=== PATIENT | male | born 1990 | race Caucasian/White ===

== ENCOUNTER 2020-11-10 22:38 | Emergency (ER) | payer MEDICAID, OTHER ==
[~2020-11-10] VITALS: Ht 177.8 cm; Wt 82.0 kg
[2020-11-11] MEDS ORDERED: HYDROCODONE/ACETAMINOPHEN 5/325MG TABLET PO ONE
[2020-11-11 00:16] LABS: HEMATOCRIT. 40.4 % (42.0-52.0); HEMOGLOBIN. 14.1 g/dL (14.0-18.0); MEAN CORPUSCULAR VOLUME 94.8 fL (80.0-94.0); MEAN PLATELET VOLUME 7.1 fl (7.4-10.4); PLATELET 230 x1000/uL (130-400); RED BLOOD CELL COUNT 4.26 mill/uL (4.7-6.1); RED CELL DISTRIBUTION WIDTH 12.7 % (11.6-14.6)
[2020-11-11 00:20] LABS: CHLORIDE 109 mEq/L (98-107)
[2020-11-11 00:40] LABS: CLARITY URINE CLEAR (CLEAR); COLOR URINE DARK YELLOW (YELLOW); KETONES URINE 3+ (NEGATIVE); LEUKOCYTE ESTERASE URINE TRACE (NEGATIVE); NITRITE URINE NEGATIVE (NEGATIVE); OCCULT BLOOD URINE NEGATIVE (NEGATIVE); PH URINE 8.5 (4.5-8.0); PROTEIN URINE 1+ (NEGATIVE); SPECIFIC GRAVITY URINE 1.029 (1.005-1.030)
[2020-11-11] MEDS ORDERED: SULFAMETHOXAZOLE/TRIMETHOPRIM 800/160MG TABLET PO ONE (02:30)
[2020-11-11] MEDS ORDERED: SULF1TAB48 MT (02:45)
[2020-11-11] MEDS ORDERED: ACET-2708 MT (02:45)
[2020-11-11] MEDS ORDERED: IOHEXOL-300 100 ML BOTTLE ONE (03:03)
[2020-11-11 03:11] LABS: PLATELET ESTIMATE NORMAL
[2020-11-11 03:44] VITALS: BP 105/50
== END 2020-11-11 03:47 | disposition home or self-care (01) ==
LOC: ER 22:38
DX: R10.9 Unspecified abdominal pain (principal); M54.9 Dorsalgia, unspecified
CPT/HCPCS: 36415; 74177; 80053; 81003; 83690; 85025; 99285; Q9967